=== PATIENT | male | born 1950 | race Caucasian/White ===

== ENCOUNTER → 2017-12-23 12:22 | Outpatient (CLI) | payer MEDICARE, BC ==
[~2017-12-23] VITALS: Ht 170.2 cm; Wt 74.8 kg
[~2017-12-23 12:22] MED LIST: ASPIRIN EC81 M1 PO; GLUCOVANCE 2.5-1 TAB PO; INVOKANA100 MG PO; LANTUS SOL100 UNIT/1 SQ; ONGLYZA5 MG PO; PRINIVIL10 MG PO; PRINIVIL20 MG PO; VYTORIN 10-40 M1 TAB PO
[2017-12-23 13:37] VITALS: Ht 170.2 cm; Wt 74.8 kg
== END | disposition home or self-care (01) ==
LOC: D.FANS 12:22
DX: E11.9 Type 2 diabetes mellitus without complications (principal)

== ENCOUNTER 2018-07-08 08:59 | Outpatient (CLI) | payer MEDICARE, BC ==
[~2018-07-08] VITALS: Ht 170.2 cm; Wt 75.0 kg
--- NOTE | ~2018-07-08 | CN ---
PATIENT NAME:ANDRE MOULTON MEDICAL RECORD: [id number] : 52 LOCATION:D.CAT ADMIT DATE: ACCOUNT: [id number] CONSULTING PHYSICIAN: SARITA MAGUIRE MD REFERRING PHYSICIAN: SARITA MAGUIRE MD DATE OF CONSULTATION: 07/08/2018 DATE OF SERVICE: 07/08/2018 CARDIOLOGY CONSULTATION ADMITTING DIAGNOSES: 1. Chest pain compatible with angina. 2. Diabetes. 3. Hypertension. 4. Hyperlipidemia. 5. Family history of coronary artery disease. 6. Previous smoker. HISTORY OF PRESENT ILLNESS: This is a gentleman with no coronary artery disease, but obviously multiple risk factors as mentioned above. He has had 3 days of chest pressure and it has worsened. He has chest pressure at rest today. PHYSICAL EXAMINATION: GENERAL APPEARANCE: Well-nourished, well-developed, appears stated age. Level of distress, comfortable. PSYCHIATRIC: Mental status, alert, normal affect. Orientation, oriented to time, place and person. EYES: Lids and conjunctiva, noninjected. No discharge, no pallor. ENT: Lips, teeth, gums, normal dentition. Oropharynx, no cyanosis, no pallor. NECK: Carotid arteries, bilateral normal upstroke, no bruits, no thrills. JUGULAR VEINS: No jugular venous pressure or distention. CERVICAL LYMPH NODES: Nontender, nonenlarged. THYROID: Not enlarged. Nontender. No nodules. LUNGS: Respiratory effort, unlabored. CHEST: Normal curvature. No thoracic deformity. No chest wall tenderness. Percussion, resonant. Auscultation, clear. No wheezes, no rales, no rhonchi. CARDIOVASCULAR: Precordial exam, nondisplaced. No heaves or pericardial thrills. Rate and rhythm, regular. Heart sounds, normal S1, normal S2. No S3, no gallop, no rub. Systolic murmur, not heard. Diastolic murmur, not heard. EXTREMITIES: No cyanosis, no edema. Peripheral pulses, full and equal in all extremities, except as noted. No bruits appreciated. ABDOMEN: Soft, nondistended. Normal aorta. No bruit. Nontender. No masses. Liver, nontender, no hepatomegaly. Spleen, nontender, no splenomegaly. MUSCULOSKELETAL: No joint tenderness. No joint swelling. No erythema. NEUROLOGICAL: Normal gait, normal strength, normal tone. SKIN: Warm and dry. OVERALL IMPRESSION: Increasing chest pressure with multiple risk factors, most likely has hemodynamically significant coronary artery disease. We will proceed with coronary angiography. Further care depends upon findings of the angiography. TRANSINT:[id number] Voice Confirmation ID: [id number] DOCUMENT ID: [id number] CONSULT REPORT [id number] ANDRE MOULTON JEFFREY MD at 1456 CC: [id number] DICTATION DATE: 07/08/18 1019 MOP MAKER: 07/08/18 1147 DEP CLI 07/08/18 [id number] [place] [address]
--- NOTE | ~2018-07-08 | HEMODYNAMI ---
PATIENT:ANDRE MOULTON MEDICAL RECORD: [id number] : 52 LOCATION:[facility] ADMISSION DATE: 07/08/18 Generatedon:07/08/201812:36 Patient name: ANDRE MOULTON Patient #: [id number] SSN: : 1950 Date of study: 07/08/2018 Page: Of Hemodynamic Procedure Report Patient Data Patient Demographics Procedure consent was obtained First Name: ANDRE Gender: Male Last Name: KENNEY : 1950 [facility] Initial: ALISSA Age: 67 year(s) Patient #: [id number] Race: Additional ID: [id number] Contact details Address: [address] [place] [address] ROAD State: [place] City: [facility] Zip code: [address] Admission Admission Data Admission Date: 07/08/2018 Admission Time: 8:59 Arrival Date: 07/08/2018 Arrival Time: 8:59 Admit Source: Other Insurance Payor: Medicare Height (in.): 66.93 BSA: 1.86 (m2) Height (cm.): 170 BMI: 25.95 (kg/m2) Weight (lbs.): 165.35 Weight (kg.): 75 Lab Results Lab Result Date: 07/08/2018 Lab Result Time: 0:00 Biochemistry Name Units Result Min Max BUN mg/dl 14 --(--*-)-- 7 18 Creatinine mg/dl 1.5 --(----)-* 0.6 1.3 CBC Name Units Result Min Max Hemoglobin g/dl 14.4 --(*---)-- 13.5 17.5 Procedure Procedure Types Cath Procedure Diagnostic Procedure [facility] w/Coronaries FFR/IVUS Intra-Coronary IVUS Initial Sedation Charges Moderate Sedation up to 15 minutes Procedure Description Procedure Date Procedure Date: 07/08/2018 Procedure Start Time: 12:15 Procedure End Time: 12:30 Procedure Staff Name Function Ky Hoffman MD Performing Physician Beena GRIER Monitor Janice Chang RT Scrub Delia Blanco RN Nurse Yash Ramirez RN Avionics Electronics Technician Procedure Data Cath Procedure Fluoroscopy Diagnostic fluoroscopy Total fluoroscopy Time: 0 time: 0 min min Diagnostic fluoroscopy Total fluoroscopy dose: 930 dose: 930 mGy mGy Contrast Material Contrast Material Type Amount (ml) Isovue 300 114 Entry Location Entry Primary Successful Side Size Upsize Upsize Entry Closure Zaman ccessful Closure Location (Fr) 1 (Fr) 2 (Fr) Remarks Device Remarks Radial Right 6 Fr Mechanical artery Short Compression Estimated blood loss: 5 ml Diagnostic catheters Device Type Used For End Catheter Placement DIAGNOSTIC Banner 110cm 5 Multi-vessel Fr catheter ([id number]) Angiography Procedure Complications No complications Procedure Medications Medication Administration Route Dosage Oxygen etCO2 Nasal cannula 2 l/min Lidocaine 2% added to field 20 Heparin Flush Bag added to field 2 bags (1000units/500ml NS) 0.9% NaCl I.V. 100 ml/hr Versed I.V. 1 mg Fentanyl I.V. 50 mcg Versed I.V. 1 mg Fentanyl I.V. 50 mcg Radial Cocktail I.A. 1 syringe (Verapomil 2mg/Nitro 400mcg/Heparin 1500units) Hemodynamics Rest BSA: 1.86 (m2) HGB: 14.4 (g/dl) O2 Consumption: Estimated: 222.78 (ml/min) O2 Co nsumption indexed: Estimated:119.77 (ml/min/m) Heart Rate: 79 (bpm) Pressure Samples Time Site Value (mmHg) Purpose Heart Use Rate(bpm) 12:16 LV 72/-2,3 Snapshot 98 Snapshots Pre Cath Intra NCS Post Cath Vital Signs Time Heart Resp SPO2 etCO2 NIBP (mmHg) Rhythm Pain Sedation Rate (ipm) (%) (mmHg) Status Level (bpm) 12:04:28 82 16 98 23.1 145/78(110) NSR 0 (11) 10(A) , No pain 12:08:42 85 15 97 39.6 136/77(103) NSR 0 (11) 10(A) , No pain 12:12:56 84 13 97 0 133/73(105) NSR 0 (11) 9(A) , No pain 12:17:06 97 13 96 15.6 119/70(98) NSR 0 (11) 9(A) , No pain 12:21:12 92 13 96 36.6 135/75(93) NSR 0 (11) 9(A) , No pain 12:25:24 93 15 96 35.1 133/72(98) NSR 0 (11) 9(A) , No pain 12:29:46 90 16 98 39.5 133/76(94) NSR 0 (11) 9(A) , No pain Medications Time Medication Route Dose Verified Delivered Reason Notes Effectiveness by by 12:02:59 Oxygen etCO2 2 l/min Kyeugene Lin used for Nasal Dalton Blanco RN procedure cannula 12:03:05 Lidocaine 2% added 20ml Ky Ky for local to vial Dalton Hoffman MD anesthetic field 12:03:11 Heparin Flush added 2 bags Ky Mcpherson used for Bag to Dalton Hoffman MD procedure (1000units/500ml field NS) 12:03:24 0.9% NaCl I.V. 100 Kyeugene Lin Per ml/hr Dalton Blanco RN physician 12:07:44 Versed I.V. 1 mg Ky Lin for sedation Dalton Blanco RN 12:07:50 Fentanyl I.V. 50 mcg Ky Lin for sedation Dalton Blanco RN 12:14:21 Versed I.V. 1 mg Ky Lin for sedation Dalton Blanco RN 12:14:26 Fentanyl I.V. 50 mcg Ky Lin for sedation Dalton Blanco RN 12:16:09 Radial Cocktail I.A. 1 Ky Mcpherson for (Verapomil syringe Dalton Hoffman MD vasodilation 2mg/Nitro 400mcg/Heparin 1500units) Procedure Log Time Note 11:30:22 Yash Ramirez RN sent for patient. Start room use. 11:45:49 Informed consent obtained and on chart 11:46:23 Time tracking: Regular hours (M-F 7:00 - 5:00) 11:46:27 Plan of Care:Hemodynamics will remain stable., Cardiac rhythm will remain stable., Comfort level will be maintained., Respiratory function will remain adequate., Patient/ family verbilizes understanding of procedure., Procedure tolerated without complication., Recovers from procedure without complications.. 11:47:21 Admit Source: Other 11:47:23 Arrival Date: 07/08/2018 8:59:00 AM 11:47:32 Insurance Payor : Medicare 11:47:44 Patient Height : 66.93 inches 11:48:10 Patient Weight : 165.35 lbs 11:55:03 Patient received from ED to CCL 2 Alert and oriented. Tansferred to table in Supine position. 11:55:05 Warm blankets applied, and kyle hugger turned on for patient comfort. 11:55:05 Correct patient and procedure confirmed by team. 11:55:06 ECG and BP/O2 sat monitors applied to patient. 12:02:59 Oxygen 2 l/min etCO2 Nasal cannula was administered by Delia Blanco RN; used for procedure; 12:03:05 Lidocaine 2% 20ml vial added to field was administered by Ky Hoffman MD; for local anesthetic; 12:03:11 Heparin Flush Bag (1000units/500ml NS) 2 bags added to field was administered by Ky Hoffman MD; used for procedure; 12:03:24 0.9% NaCl 100 ml/hr I.V. was administered by Delia Blanco RN; Per physician; 12:03:25 Vital chart was started 12:03:26 Baseline sample Acquired. 12:03:30 Rhythm: sinus rhythm 12:03:32 Full Disclosure recording started 12:03:36 H&P Date Dictated: 07/08/2018 ER History on chart., New H&P dictated by physician.. 12:03:38 Pre-procedure instructions explained to patient. 12:03:38 Pre-op teaching completed and patient verbalized understanding. 12:03:39 Family in waiting room. 12:03:40 Patient NPO since Midnight. 12:03:42 Is the patient allergic to Iodine/contrast media? No. 12:03:44 Was the patient premedicated? No 12:03:45 Is patient on blood thinner?Yes 12:03:46 Patient diabetic? Yes. 12:03:47 If diabetic: On Metformin? Yes 12:03:49 If on Metformin: Last Dose? 07/08/2018 12:03:53 Previous problem with sedation/anesthesia? No ? 12:03:55 Snore? No 12:03:56 Sleep apnea? No 12:03:58 Deviated septum? No 12:03:59 Opens mouth fully? Yes 12:04:00 Sticks out tongue? Yes 12:04:01 Airway obstruction? No ? 12:04:04 Dentures? No ? 12:04:06 Pre procedure: right dorsailis pedis pulse 2+ Normal; easily identifiable; not easily obliterated 12:04:09 Pre procedure: left dorsailis pedis pulse 2+ Normal; easily identifiable; not easily obliterated 12:04:10 Patient pain scale 0/10 ?. 12:04:17 IV patent on arrival in right hand with 0.9% NaCl at [facility]. 12:04:18 Lab results completed and on chart. 12:04:23 Right Radial & Right Groin area was prepped with chlora-prep and draped in sterile fashion 12:04:24 Alarms reviewed by R. N. 12:04:24 Sharps counted by scrub and verified by R.N. 12:05:47 Lab Result : Hemoglobin 14.4 g/dl 12:05:47 Lab Result : Creatinine 1.5 mg/dl 12:05:47 Lab Result : BUN 14 mg/dl 12:05:51 Physician arrived 12:05:51 --------ALL STOP TIME OUT------ 12:05:52 Final Timeout: patient, procedure, and site verified with staff and physician. All members of the team are in agreement. 12:05:53 Right Radial & Right Groin site verified by team. 12:05:56 Physical assessment completed. ASA score P 2 - A patient with mild systemic disease as per Ky Hoffman MD. 12:05:59 Sedation plan: IV Moderate Sedation Medication:Versed, Fentanyl 12:07:43 Use device set Radial Dx or PCI 12:07:44 Versed 1 mg I.V. was administered by Delia Blanco RN; for sedation; 12:07:44 ACIST Syringe (72363) opened to sterile field. 12:07:44 Medline Cath Pack ([id number]) opened to sterile field. 12:07:45 Bag Decanter () opened to sterile field. 12:07:45 DIAGNOSTIC WIRE .035 260cm J wire (666714) opened to sterile field. 12:07:45 ACIST Hand Control (16121) opened to sterile field. 12:07:46 ACIST Manifold (11954) opened to sterile field. 12:07:46 Tegaderm 4 x 4 (1626W) opened to sterile field. 12:07:47 MBrace Wrist Support ([id number]) opened to sterile field. 12:07:50 Fentanyl 50 mcg I.V. was administered by Delia Blanco RN; for sedation; 12:07:51 SHEATH 6FR Slender (74-0193) opened to sterile field. 12:14:21 Versed 1 mg I.V. was administered by Delia Blanco RN; for sedation; 12:14:26 Fentanyl 50 mcg I.V. was administered by Delia Blanco RN; for sedation; 12:14:55 Procedure started. 12:15:03 Local anesthetic to right radial artery with Lidocaine 2% by Ky Hoffman MD.INITIAL ACCESS ONLY 12:15:16 A 6 Fr Short sheath was inserted into the Right Radial artery 12:15:49 A DIAGNOSTIC Banner 110cm 5 Fr catheter (254385) was advanced over the wire and used for Multi-vessel Angiography. 12:16:09 Radial Cocktail (Verapomil 2mg/Nitro 400mcg/Heparin 1500units) 1 syringe I.A. was administered by Ky Hoffman MD; for vasodilation; 12:16:37 LV hemodynamics recorded. 12:16:39 LV gram done using MARIE 12:16:54 EF : 60 % 12:17:21 RCA angiography performed. 12:17:24 Injector settings: Ml/sec: 3, Volume: 6, 12:17:32 Catheter removed. 12:18:09 GUIDE 6FR XBC 3 ([id number]) opened to sterile field. 12:18:10 6 Fr xbc 3 guide catheter was inserted over the wire 12:18:52 LCA angiography performed. 12:18:55 Injector settings: Ml/sec: 3, Volume: 6, 12:21:04 INFLATOR Merit BasixCompak (DA1010) opened to sterile field. 12:21:05 CHOICE PT Extra Support 182cm wire ([id number]) opened to sterile field. 12:21:06 Northbridge [place] IVUS Catheter (34540D) opened to sterile field. 12:21:24 choice pt wire advanced. 12:23:57 Wire removed. 12:24:04 Guide Catheter removed. unable to cannulate vessel. 12:24:20 GUIDE 6FR JL 3.5 guide catheter ([id number]) opened to sterile field. 12:24:39 6 Fr jl 3.5 guide catheter was inserted over the wire 12::46 choice pt wire advanced. 12::57 Wire advanced across lesion. 12:26:21 IVUS catheter advanced over wire. 12:28:26 IVUS pass to LMCA lesion performed. 12:28:30 IVUS pass to LAD lesion performed. 12::54 IVUS catheter removed over wire. 12::57 Wire removed. 12::58 Guide catheter removed. 12:29:15 TR BAND Standard ([id number]) opened to sterile field. 12:29:32 Sheath removed intact; hemostasis achieved with Mechanical Compression to the Right Radial artery. 12::34 Procedure ended.(Physican Out) 12::42 Fluoroscopy time 00.00 minutes. 12::46 Fluoroscopy dose: 930 mGy 12::46 Flurop Dose total: 930 12::52 Contrast amount:Isovue 300 114ml. 12::55 Sharps counted by scrub and verified by R.N. 12::58 TR band inflated with 10cc of air. 12:30:04 Post right radial artery:stable 12:30:05 Post Procedure Pulses reassessed and unchanged 12:30:08 Post procedure rhythm: unchanged. 12:30:11 Estimated blood loss: 5 ml 12:30:12 Post procedure instruction explained to patient.Patient verbalizes understanding. 12:30:12 Patient needs reinforcement of post procedure teaching. 12:30:28 Procedure type changed to Cath procedure, Diagnostic procedure, LHC, C w/Coronaries, FFR/IVUS, Intra-Coronary IVUS Initial, Sedation Charges, Moderate Sedation up to 15 minutes 12:30:29 Procedure and supply charges have been captured, reviewed, submitted and are correct. 12::34 Procedure Complication : No complications 12:30:36 Vital chart was stopped 12::36 See physician's report for complete and final results. 12:30:40 Report given to Pre/Post Procedure Room. 12:30:53 Patient transfered to Pre/Post Procedure Room with Stretcher. 12:30:55 Procedure ended. 12:30:55 Full Disclosure recording stopped 12:31:00 End room use (Document Last) Device Usage Item Name Manufacture Quantity Catalog Number Hospital Part Current Minim al Lot# / Charge Number Stock Stock Serial# Code ACIST Acist 1 12316 039184 [id number] [id number] 20 Syringe Medical (10336) Systems Inc Medline Medline 1 [id number] 393364 36407 413953 5 Cath Pack ([id number]) Bag Microtek 1 2001S 531540 58146 154499 5 Decanter Medical Inc. () DIAGNOSTIC [facility] 1 576436 032685 968016 142405 30 WIRE .035 260cm J wire (223557) ACIST Hand Acist 1 46227 348909 002464 755349 5 Control Medical (00090) Systems Inc ACIST Acist 1 15009 901037 617181 524481 5 Manifold Medical (23439) Systems Inc Tegaderm 4 3M 1 1626W 597337 870141 254117 5 x 4 (1626W) MBrace Advanced 1 140-0250-00 929802 34527 422253 5 Wrist Vascular Support Dynamics ([id number]) SHEATH 6FR Terumo 1 [id number] 015668 368618 964818 5 Slender (80-1060) DIAGNOSTIC Terumo 1 40-5943 445320 927723 518204 5 Banner 110cm 5 Fr catheter (875818) GUIDE 6FR Cardinal 1 [id number] 640887 [address] [facility] (00403855) INFLATOR [facility] 1 [id number] 572373 858692 784836 15 [facility] Medical BasixCompak (VP4022) CHOICE PT [place] 1 [id number] 346696 444016 998175 5 Extra Scientific Support 182cm wire ([id number]) Northbridge North[place] 1 11019K 998097 890028 212354 8 [place] IVUS Catheter (10826P) GUIDE 6FR Medtronic 1 [id number] 182416 75685 965117 1 JL 3.5 guide catheter (AQ0SU44) TR BAND Terumo 1 [id number] 970637 962873 667298 40 Standard ([id number]) Signature Audit [place] Stage Time Signature Unsigned Intra-Procedure 07/08/2018 Beena Hull 12:36:30 PM RT(R) Signatures Monitor : Beena Hull RT Signature : Date : Time : [address] [place] [address]
--- NOTE | ~2018-07-08 | OP ---
PATIENT NAME: ANDRE MOULTON MEDICAL RECORD: [id number] :52 LOCATION:D.CAT ADMISSION DATE: SURGEON: SARITA MAGUIRE MD DATE OF OPERATION: 07/08/2018 DATE OF SERVICE: 07/08/2018 PROCEDURES: 1. Left heart catheterization. 2. Selective coronary angiography. 3. Left ventriculogram. 4. Intravascular ultrasound of left main. 5. Intravascular ultrasound of the LAD. INDICATION: Chest pain compatible with angina and coronary artery disease. PROCEDURE IN DETAIL: After informed consent was obtained and after detailed description of risks, benefits as well as alternative therapies, the patient elected to proceed with angiogram and heart catheterization. The right radial area was prepped and draped in normal sterile fashion. Right radial artery was cannulated via modified Seldinger technique with placement of 6-Congolese sheath. All catheters exchanged through this sheath. FINDINGS: Left ventriculogram was from in the standard 30-degree MARIE view reveals good cardiac wall motion throughout all segments. Overall ejection fraction estimated at 60%. SELECTIVE CORONARY ANGIOGRAPHY: 1. Left main is very short. It appears to be angulated, questionably stenosed; however, intravascular ultrasound reveals that there is no more than 20% stenosis. 2. The proximal LAD is as well angulated, hazy. Intravascular ultrasound reveals there is no more than 20% stenosis in this vessel as well. 3. Left circumflex has mild irregularities, but no flow-limiting stenosis. 4. Right coronary has mild irregularities, but no flow-limiting stenosis. OVERALL IMPRESSION: Minimal coronary artery disease is present of the left main and left anterior descending, but no significant stenosis. Continue medical management of the coronary artery disease and cardiac risk factors. TRANSINT:[id number] Voice Confirmation ID: [id number] DOCUMENT ID: [id number] SARITA MAGUIRE MD at 1456 CC: [id number] DICTATION DATE: 07/08/18 1233 ASSOCIATE FINANCIAL REPRESENTATIVE: 07/08/18 1247 DEP CLI 07/08/18 [place] [id number]
[2018-07-08 09:12] VITALS: Ht 170.2 cm; Wt 75.0 kg
[2018-07-08 09:46] LABS: BASOPHILS 0.4 % (0-2); EOSINOPHILS 2.2 % (0-7); HEMATOCRIT 42.9 % (42.0-54.0); HEMOGLOBIN 14.4 g/dL (13.5-17.5); IMMATURE GRANULOCYTES 0.2 % (0-5); LYMPHOCYTES 26.1 % (15-50); MCH 31.6 pg (26.0-34.0); MCHC 33.6 g/dL (31.0-37.0); MCV 94.1 fL (80.0-100.0); MEAN PLATELET VOLUME 10.8 fL (7.4-10.4); MONOCYTES 9.2 % (2-11); NEUTROPHILS 61.9 % (40-80); PLATELET COUNT 126 10x3/uL (130-400); RBC 4.56 10x6/uL (4.20-6.10); RDW 12.7 % (11.5-14.5)
[2018-07-08 10:02] LABS: ALBUMIN 3.6 g/dL (3.4-5.0); ALKALINE PHOSPHATASE 56 U/L (46-116); ALT (SGPT) 35 U/L (10-68); BILIRUBIN - TOTAL 0.48 mg/dL (0.2-1.3); CALC OSMOLALITY 293 mosm/kg (275-300); CALCIUM 8.5 mg/dL (8.5-10.1); CARBON DIOXIDE 29.9 mmol/L (21.0-32.0); CHLORIDE - SERUM 107 mmol/L (98-107); CREATININE - SERUM 1.5 mg/dL (0.6-1.3); GLUCOSE 168 mg/dL (74-106); POTASSIUM - SERUM 4.6 mmol/L (3.5-5.1); PROTEIN - SERUM 6.5 g/dL (6.4-8.2); SODIUM 145 mmol/L (136-145); UREA NITROGEN 14 mg/dL (7-18); eGFR NON AFRICAN AMERICAN 50 mL/min (90-120)
[2018-07-08 10:06] LABS: APTT 24.5 SECONDS (22.8-39.4); INR 0.96 (0.85-1.17); PROTIME 12.3 SECONDS (11.6-15.0)
[2018-07-08 10:14] LABS: CKMB 2.7 U/L (0.0-3.6); CREATINE KINASE 253 UL (21-232); TROPONIN-I < 0.017 ng/mL (0.000-0.060)
[2018-07-08 12:51] VITALS: BP 136/77
== END 2018-07-08 15:13 | disposition home or self-care (01) ==
LOC: D.ER 08:59 → D.CATH 08:59 → EDSTATUS 10:38 → D.CATH 15:13
PROVIDERS: Family Medicine
DX: I20.9 Angina pectoris, unspecified (principal); E11.9 Type 2 diabetes mellitus without complications; I10 Essential (primary) hypertension; E78.5 Hyperlipidemia, unspecified; Z87.891 Personal history of nicotine dependence; Z82.49 Family history of ischemic heart disease and other diseases of the circulatory system; Z01.812 Encounter for preprocedural laboratory examination

== ENCOUNTER → 2019-01-08 10:55 | Outpatient (CLI) | payer MEDICARE, BC ==
[2018-07-08 09:12] VITALS: BMI 25.9
== END | disposition home or self-care (01) ==
LOC: D.NM 10:55
PROVIDERS: ATTEND Internal Medicine Gastroenterology
DX: R11.0 Nausea (principal); R10.9 Unspecified abdominal pain; R14.0 Abdominal distension (gaseous)

== ENCOUNTER → 2019-02-02 10:52 | Outpatient (CLI) | payer MEDICARE, BC ==
[2018-07-08 09:12] VITALS: BMI 25.9
== END | disposition home or self-care (01) ==
LOC: D.LAB 10:52
PROVIDERS: ATTEND Family Medicine
DX: K31.84 Gastroparesis (principal); R10.10 Upper abdominal pain, unspecified; Z86.010 Personal history of colon polyps

== ENCOUNTER → 2019-08-04 16:06 | Outpatient (CLI) | payer MEDICARE, BC ==
[2018-07-08 09:12] VITALS: BMI 25.9
== END | disposition home or self-care (01) ==
LOC: D.CT 16:06
PROVIDERS: ATTEND Family Medicine
DX: R51 Headache (principal)

== ENCOUNTER → 2021-01-19 10:55 | Outpatient (CLI) | payer MEDICARE, BC ==
[2018-07-08 09:12] VITALS: BMI 25.9
== END | disposition home or self-care (01) ==
LOC: D.MRI 10:30
PROVIDERS: ATTEND Family Medicine
DX: M54.2 Cervicalgia (principal)